=== PATIENT | male | born 1940 | race Caucasian/White ===

== ENCOUNTER 2022-09-09 13:51 | Inpatient (IN) | payer OTHER, MEDICAID ==
[~2022-09-09] VITALS: Ht 180.3 cm; Wt 127.5 kg
[2022-09-09 14:00] VITALS: BP_SYST 125
[2022-09-09] MEDS ORDERED: MORPHINE 4 MG INJ. 4 MG/ML VIAL IVP ONE (15:30)
[2022-09-09 15:48] LABS: BASOPHILS # (AUTO) 0.1 K/uL (0.0-0.2); BASOPHILS % (AUTO) 0.7 % (0.0-2.0); EOSINOPHILS # (AUTO) 0.1 K/uL (0.0-0.4); HEMATOCRIT 37.7 % (36-54); HEMOGLOBIN 12.3 g/dL (14.0-18.0); LYMPHOCYTES # (AUTO) 1.3 K/uL (1.0-5.5); LYMPHOCYTES % (AUTO) 14.9 % (20.5-51.5); MEAN CORPUSCULAR HEMOGLOBIN 29 pg (27-31); MEAN CORPUSCULAR HGB CONC 33 % (32-36); MEAN CORPUSCULAR VOLUME 90 fL (79.0-98.0); MONOCYTES # (AUTO) 0.9 K/uL (0.0-1.0); MONOCYTES % (AUTO) 10.4 % (1.7-9.3); NEUTROPHILS # (AUTO) 6.5 K/uL (1.8-7.7); PLATELET COUNT (AUTO) 197 K/uL (130-430); RED CELL DISTRIBUTION WIDTH 15.3 % (9.0-15.0); WHITE BLOOD COUNT (AUTO) 8.9 K/uL (4.8-10.8)
[2022-09-09 16:13] LABS: ANION GAP 8 (5-15); CALCIUM 8.3 mg/dL (8.4-11.0); CHLORIDE 97 mmol/L (98-107); CREATININE 1.85 mg/dL (0.55-1.30); GLUCOSE 307 mg/dL (70-99); UREA NITROGEN, BLOOD 20 mg/dL (8-21)
[2022-09-09 16:17] LABS: ALANINE AMINOTRANSFERASE 13 U/L (12-78); ALBUMIN 2.5 g/dL (3.4-4.8); ASPARTATE AMINOTRANSFERASE 16 U/L (10-37); TOTAL BILIRUBIN 0.6 mg/dL (0.0-1.0)
[2022-09-09 16:21] LABS: INR 1.1 (0.80-1.20); PROTHROMBIN TIME 11.3 SECS (9.5-12.5)
[2022-09-09] MEDS ORDERED: APIX2.5T PO (17:03)
[2022-09-09] MEDS ORDERED: ALBU2.5V7 INH (17:03)
[2022-09-09] MEDS ORDERED: INSU100V11 SQ (17:03)
[2022-09-09] MEDS ORDERED: ASCO500T19 PO (17:03)
[2022-09-09] MEDS ORDERED: AMLO5TAB4 PO (17:03)
[2022-09-09] MEDS ORDERED: INSU100V46 SQ (17:03)
[2022-09-09] MEDS ORDERED: FAMO20TA8 PO (17:03)
[2022-09-09] MEDS ORDERED: DOCU-144 PO (17:03)
[2022-09-09] MEDS ORDERED: VITA250012 PO (17:03)
[2022-09-09] MEDS ORDERED: LIP80 PO (17:03)
[2022-09-09] MEDS ORDERED: AMIN30LI2 PO (17:03)
[2022-09-09] MEDS ORDERED: POTA-197 PO (17:03)
[2022-09-09] MEDS ORDERED: FURO-149 PO (17:03)
[2022-09-10] MEDS ORDERED: HALOPERIDOL LACTATE 5 MG/ML VIAL IVP ONE (02:15)
[2022-09-10] MEDS: MORPHINE 2 MG/ML INJ. SYRINGE IVP PRN ×2 (03:03→22:36)
[2022-09-10 06:54] LABS: BASOPHILS # (AUTO) 0.1 K/uL (0.0-0.2); BASOPHILS % (AUTO) 0.6 % (0.0-2.0); EOSINOPHILS # (AUTO) 0.1 K/uL (0.0-0.4); EOSINOPHILS % (AUTO) 1.4 % (0.0-4.0); HEMATOCRIT 35.5 % (36-54); HEMOGLOBIN 11.9 g/dL (14.0-18.0); LYMPHOCYTES # (AUTO) 1.5 K/uL (1.0-5.5); LYMPHOCYTES % (AUTO) 17.4 % (20.5-51.5); MEAN CORPUSCULAR HEMOGLOBIN 30 pg (27-31); MEAN CORPUSCULAR HGB CONC 34 % (32-36); MEAN CORPUSCULAR VOLUME 89 fL (79.0-98.0); MONOCYTES # (AUTO) 0.9 K/uL (0.0-1.0); MONOCYTES % (AUTO) 10.6 % (1.7-9.3); PLATELET COUNT (AUTO) 177 K/uL (130-430); RED BLOOD CELL COUNT(AUTO) 3.99 MIL/uL (4.2-6.2); RED CELL DISTRIBUTION WIDTH 15.1 % (9.0-15.0); WHITE BLOOD COUNT (AUTO) 8.6 K/uL (4.8-10.8)
[2022-09-10 07:11] LABS: ALANINE AMINOTRANSFERASE 12 U/L (12-78); ALBUMIN 2.5 g/dL (3.4-4.8); ANION GAP 5 (5-15); ASPARTATE AMINOTRANSFERASE 12 U/L (10-37); CALCIUM 8.6 mg/dL (8.4-11.0); CHLORIDE 97 mmol/L (98-107); CREATININE 1.68 mg/dL (0.55-1.30); GLUCOSE 265 mg/dL (70-99); TOTAL BILIRUBIN 0.9 mg/dL (0.0-1.0); UREA NITROGEN, BLOOD 21 mg/dL (8-21)
[2022-09-10] MEDS ORDERED: INSULIN REGULAR, HUMAN 100 UNITS/ML, 3 ML VIAL (humuLIN R) SUBCUT PRN (15:15)
[2022-09-10] MEDS ORDERED: ALBUTEROL SULFATE 0.083% 2.5 MG/3 ML VIAL.NEB INH PRN (16:30)
[2022-09-10] MEDS ORDERED: INSU100V46 (16:31)
[2022-09-10 16:35] VITALS: BP_SYST 131
[2022-09-10] MEDS: INSULIN LISPRO SLIDING SCALE 100 UNITS/ML, 3 ML VIAL (humaLOG) SUBCUT PRN (16:43)
[2022-09-10 17:45] VITALS: BP_SYST 152
[2022-09-10 18:54] VITALS: BP_SYST 132
[2022-09-10 20:00] VITALS: BP_SYST 138
[2022-09-10] MEDS: ATORVASTATIN 20 MG TABLET PO SCH (20:05)
[2022-09-10] MEDS: DOCUSATE SODIUM 100 MG CAPSULE PO SCH (20:06)
[2022-09-10] MEDS: APIXABAN 2.5 MG TABLET PO SCH (20:07)
[2022-09-10] MEDS: FUROSEMIDE 40 MG TABLET PO SCH (20:07)
[2022-09-10] MEDS: INSULIN GLARGINE 100 UNITS/ML, 10 ML VIAL SQ SCH (20:10)
[2022-09-11 04:00] VITALS: BP_SYST 134
[2022-09-11] MEDS: MORPHINE 2 MG/ML INJ. SYRINGE IVP PRN ×2 (04:09→20:24)
[2022-09-11 08:00] VITALS: BP_SYST 146
[2022-09-11] MEDS: FAMOTIDINE 20 MG TABLET PO SCH (09:44)
[2022-09-11] MEDS: APIXABAN 2.5 MG TABLET PO SCH ×2 (09:44→20:09)
[2022-09-11] MEDS: FUROSEMIDE 40 MG TABLET PO SCH ×2 (09:45→20:07)
[2022-09-11] MEDS: POTASSIUM CHLORIDE 20 MEQ TAB.PRT.SR PO SCH (09:46)
[2022-09-11] MEDS: amLODIPine BESYLATE 5 MG TABLET PO SCH (09:47)
[2022-09-11] MEDS: DOCUSATE SODIUM 100 MG CAPSULE PO SCH ×2 (09:50→20:06)
[2022-09-11] MEDS: INSULIN LISPRO SLIDING SCALE 100 UNITS/ML, 3 ML VIAL (humaLOG) SUBCUT PRN ×3 (11:23→20:40)
[2022-09-11 12:30] VITALS: BP_SYST 121
[2022-09-11 17:00] VITALS: BP_SYST 126
[2022-09-11 20:00] VITALS: BP_SYST 132
[2022-09-11] MEDS: ATORVASTATIN 20 MG TABLET PO SCH (20:08)
[2022-09-11] MEDS: INSULIN GLARGINE 100 UNITS/ML, 10 ML VIAL SQ SCH (20:36)
[2022-09-12 00:47] VITALS: BP_SYST 123
[2022-09-12 06:41] LABS: ANION GAP 3 (5-15); CALCIUM 8.7 mg/dL (8.4-11.0); CHLORIDE 97 mmol/L (98-107); CREATININE 1.57 mg/dL (0.55-1.30); GLUCOSE 230 mg/dL (70-99); UREA NITROGEN, BLOOD 26 mg/dL (8-21)
[2022-09-12 07:47] LABS: BASOPHILS # (AUTO) 0.1 K/uL (0.0-0.2); BASOPHILS % (AUTO) 0.8 % (0.0-2.0); EOSINOPHILS # (AUTO) 0.3 K/uL (0.0-0.4); EOSINOPHILS % (AUTO) 3.1 % (0.0-4.0); HEMATOCRIT 33.7 % (36-54); HEMOGLOBIN 11.3 g/dL (14.0-18.0); LYMPHOCYTES # (AUTO) 1.9 K/uL (1.0-5.5); LYMPHOCYTES % (AUTO) 21.6 % (20.5-51.5); MEAN CORPUSCULAR HEMOGLOBIN 30 pg (27-31); MEAN CORPUSCULAR HGB CONC 34 % (32-36); MEAN CORPUSCULAR VOLUME 89 fL (79.0-98.0); MONOCYTES # (AUTO) 1.1 K/uL (0.0-1.0); MONOCYTES % (AUTO) 12.2 % (1.7-9.3); NEUTROPHILS # (AUTO) 5.4 K/uL (1.8-7.7); NEUTROPHILS % (AUTO) 62.3 % (40.0-70.0); PLATELET COUNT (AUTO) 174 K/uL (130-430); RED BLOOD CELL COUNT(AUTO) 3.79 MIL/uL (4.2-6.2); RED CELL DISTRIBUTION WIDTH 15.1 % (9.0-15.0); WHITE BLOOD COUNT (AUTO) 8.7 K/uL (4.8-10.8)
[2022-09-12] MEDS: DOCUSATE SODIUM 100 MG CAPSULE PO SCH ×2 (08:36→21:27)
[2022-09-12] MEDS: FAMOTIDINE 20 MG TABLET PO SCH (08:36)
[2022-09-12] MEDS: amLODIPine BESYLATE 5 MG TABLET PO SCH (08:40)
[2022-09-12] MEDS: POTASSIUM CHLORIDE 20 MEQ TAB.PRT.SR PO SCH (08:40)
[2022-09-12] MEDS: APIXABAN 2.5 MG TABLET PO SCH ×2 (08:41→21:26)
[2022-09-12] MEDS: FUROSEMIDE 40 MG TABLET PO SCH ×2 (08:45→21:28)
[2022-09-12] MEDS: MUPIROCIN 2% TOPICAL OINTMENT 22 GM TP SCH ×2 (11:13→21:28)
[2022-09-12] MEDS: INSULIN LISPRO SLIDING SCALE 100 UNITS/ML, 3 ML VIAL (humaLOG) SUBCUT PRN ×3 (11:20→21:25)
[2022-09-12 11:31] VITALS: BP_SYST 127
[2022-09-12 16:38] VITALS: BP_SYST 140
[2022-09-12] MEDS ORDERED: VITD2000 PO (17:35)
[2022-09-12] MEDS ORDERED: ACET325C5 PO (17:43)
[2022-09-12] MEDS: INSULIN GLARGINE 100 UNITS/ML, 10 ML VIAL SQ SCH (21:02)
[2022-09-12] MEDS: ATORVASTATIN 20 MG TABLET PO SCH (21:28)
[2022-09-13] VITALS: BP_SYST 132
[2022-09-13 02:08] VITALS: BP_SYST 151
[2022-09-13 04:45] VITALS: BP_SYST 138
[2022-09-13] MEDS: INSULIN LISPRO SLIDING SCALE 100 UNITS/ML, 3 ML VIAL (humaLOG) SUBCUT PRN ×4 (06:21→22:33)
[2022-09-13] MEDS: FAMOTIDINE 20 MG TABLET PO SCH (09:26)
[2022-09-13] MEDS: DOCUSATE SODIUM 100 MG CAPSULE PO SCH ×2 (09:26→22:22)
[2022-09-13] MEDS: APIXABAN 2.5 MG TABLET PO SCH ×2 (09:27→22:23)
[2022-09-13] MEDS: FUROSEMIDE 40 MG TABLET PO SCH ×2 (09:28→22:24)
[2022-09-13] MEDS: POTASSIUM CHLORIDE 20 MEQ TAB.PRT.SR PO SCH (09:29)
[2022-09-13] MEDS: amLODIPine BESYLATE 5 MG TABLET PO SCH (09:29)
[2022-09-13] MEDS: MUPIROCIN 2% TOPICAL OINTMENT 22 GM TP SCH ×2 (09:29→22:25)
[2022-09-13 13:36] VITALS: BP_SYST 110
[2022-09-13 15:40] VITALS: BP_SYST 115
[2022-09-13 20:00] VITALS: BP_SYST 100
[2022-09-13] MEDS: ATORVASTATIN 20 MG TABLET PO SCH (22:24)
[2022-09-13] MEDS: INSULIN GLARGINE 100 UNITS/ML, 10 ML VIAL SQ SCH (22:35)
[2022-09-14 00:23] VITALS: BP_SYST 124
[2022-09-14] MEDS: INSULIN LISPRO SLIDING SCALE 100 UNITS/ML, 3 ML VIAL (humaLOG) SUBCUT PRN ×2 (06:26→12:22)
[2022-09-14 07:33] LABS: BASOPHILS # (AUTO) 0.1 K/uL (0.0-0.2); BASOPHILS % (AUTO) 0.6 % (0.0-2.0); EOSINOPHILS # (AUTO) 0.1 K/uL (0.0-0.4); EOSINOPHILS % (AUTO) 1.3 % (0.0-4.0); HEMATOCRIT 34.8 % (36-54); HEMOGLOBIN 11.4 g/dL (14.0-18.0); LYMPHOCYTES # (AUTO) 1.5 K/uL (1.0-5.5); LYMPHOCYTES % (AUTO) 14.5 % (20.5-51.5); MEAN CORPUSCULAR HEMOGLOBIN 29 pg (27-31); MEAN CORPUSCULAR HGB CONC 33 % (32-36); MEAN CORPUSCULAR VOLUME 89 fL (79.0-98.0); MONOCYTES # (AUTO) 1.4 K/uL (0.0-1.0); MONOCYTES % (AUTO) 13.4 % (1.7-9.3); NEUTROPHILS # (AUTO) 7.3 K/uL (1.8-7.7); NEUTROPHILS % (AUTO) 70.2 % (40.0-70.0); PLATELET COUNT (AUTO) 196 K/uL (130-430); WHITE BLOOD COUNT (AUTO) 10.4 K/uL (4.8-10.8)
[2022-09-14 07:47] LABS: ALANINE AMINOTRANSFERASE 13 U/L (12-78); ALBUMIN 2.2 g/dL (3.4-4.8); ANION GAP 5 (5-15); ASPARTATE AMINOTRANSFERASE 17 U/L (10-37); CALCIUM 8.8 mg/dL (8.4-11.0); CHLORIDE 97 mmol/L (98-107); CREATININE 1.57 mg/dL (0.55-1.30); GLUCOSE 216 mg/dL (70-99); TOTAL BILIRUBIN 0.9 mg/dL (0.0-1.0); UREA NITROGEN, BLOOD 29 mg/dL (8-21)
[2022-09-14 07:57] VITALS: BP_SYST 114
[2022-09-14] MEDS: POTASSIUM CHLORIDE 20 MEQ TAB.PRT.SR PO SCH (09:47)
[2022-09-14] MEDS: FUROSEMIDE 40 MG TABLET PO SCH (09:47)
[2022-09-14] MEDS: DOCUSATE SODIUM 100 MG CAPSULE PO SCH (09:47)
[2022-09-14] MEDS: FAMOTIDINE 20 MG TABLET PO SCH (09:48)
[2022-09-14] MEDS: amLODIPine BESYLATE 5 MG TABLET PO SCH (09:49)
[2022-09-14] MEDS: MUPIROCIN 2% TOPICAL OINTMENT 22 GM TP SCH (09:49)
[2022-09-14] MEDS: APIXABAN 2.5 MG TABLET PO SCH (09:56)
[2022-09-14 12:00] VITALS: BP_SYST 118; BP_SYST 121
[2022-09-14] MEDS ORDERED: traMADol HCL HCL 50 MG TABLET (ULTRAM) PO SCH (12:00)
[2022-09-14 14:16] VITALS: BP_SYST 116
[2022-09-14 16:00] VITALS: BP_SYST 123
== END 2022-09-14 16:35 | DRG 562 ==
LOC: SED 13:51 → SMU 16:37
PROVIDERS: ADMIT Internal Medicine; ATTEND Internal Medicine
PROC: 0QSGXZZ Reposition Right Tibia, External Approach (ICD-10-PCS; principal; 2022-09-12)
PROC: 0QSJXZZ Reposition Right Fibula, External Approach (ICD-10-PCS; 2022-09-12)
DX: S82.201A Unspecified fracture of shaft of right tibia, initial encounter for closed fracture (principal); E43 Unspecified severe protein-calorie malnutrition; I48.20 Chronic atrial fibrillation, unspecified; I69.351 Hemiplegia and hemiparesis following cerebral infarction affecting right dominant side; I13.0 Hypertensive heart and chronic kidney disease with heart failure and stage 1 through stage 4 chronic kidney disease, or unspecified chronic kidney disease; I50.42 Chronic combined systolic (congestive) and diastolic (congestive) heart failure; S82.401A Unspecified fracture of shaft of right fibula, initial encounter for closed fracture; E78.5 Hyperlipidemia, unspecified; W18.39XA Other fall on same level, initial encounter; E66.01 Morbid (severe) obesity due to excess calories; Z20.822 Contact with and (suspected) exposure to COVID-19; E11.22 Type 2 diabetes mellitus with diabetic chronic kidney disease; N18.30 Chronic kidney disease, stage 3 unspecified; J44.9 Chronic obstructive pulmonary disease, unspecified; Z79.4 Long term (current) use of insulin; Z79.899 Other long term (current) drug therapy; Z79.01 Long term (current) use of anticoagulants; Z74.01 Bed confinement status; Y93.89 Activity, other specified; Y92.89 Other specified places as the place of occurrence of the external cause; Y99.8 Other external cause status; Z86.718 Personal history of other venous thrombosis and embolism; Z87.891 Personal history of nicotine dependence; Z95.0 Presence of cardiac pacemaker; Z68.39 Body mass index [BMI] 39.0-39.9, adult
CPT/HCPCS: 36415; 71045; 73564; 73590-TC; 76376; 80048; 80053; 82962; 85025; 85610-TC; 85730-TC; 87081; 93005; 93306; 94760; 96372; 96374; 96375; 99285; J1630; J1815; J2270; J7030

== ENCOUNTER 2023-05-23 16:56 | Emergency (ER) | payer OTHER, MEDICAID ==
[~2023-05-23] VITALS: Ht 177.8 cm; Wt 113.4 kg
[~2023-05-23 16:56] MED LIST: ACET325C5 PO; ALBU2.5V7 INH; AMIN30LI2 PO; AMLO5TAB4 PO; APIX2.5T PO; ASCO500T19 PO; DOCU-144 PO; FAMO20TA8 PO; FURO-149 PO; INSU100V11 SQ; INSU100V46; LIP80 PO; POTA-197 PO; VITD2000 PO
[2023-05-23 17:04] VITALS: BP_SYST 129; PULSE 72; RESP 18; TEMP 98; O2SAT 97
[2023-05-23 18:37] LABS: BASOPHILS # (AUTO) 0.1 K/uL (0.0-0.2); BASOPHILS % (AUTO) 0.8 % (0.0-2.0); EOSINOPHILS # (AUTO) 0.3 K/uL (0.0-0.4); HEMATOCRIT 40.1 % (36-54); HEMOGLOBIN 12.5 g/dL (14.0-18.0); LYMPHOCYTES # (AUTO) 1.6 K/uL (1.0-5.5); LYMPHOCYTES % (AUTO) 17.6 % (20.5-51.5); MEAN CORPUSCULAR HEMOGLOBIN 27 pg (27-31); MEAN CORPUSCULAR HGB CONC 31 % (32-36); MEAN CORPUSCULAR VOLUME 86 fL (79.0-98.0); MONOCYTES # (AUTO) 1.1 K/uL (0.0-1.0); MONOCYTES % (AUTO) 11.6 % (1.7-9.3); NEUTROPHILS # (AUTO) 6.1 K/uL (1.8-7.7); PLATELET COUNT (AUTO) 221 K/uL (130-430); RED BLOOD CELL COUNT(AUTO) 4.65 MIL/uL (4.2-6.2); RED CELL DISTRIBUTION WIDTH 16.2 % (9.0-15.0); WHITE BLOOD COUNT (AUTO) 9.2 K/uL (4.8-10.8)
[2023-05-23 18:51] LABS: ANION GAP 3 (5-15); CALCIUM 9.2 mg/dL (8.4-11.0); CARBON DIOXIDE 37 mmol/L (23-29); CHLORIDE 97 mmol/L (98-107); GLUCOSE 239 mg/dL (74-106); POTASSIUM 4.2 mmol/L (3.5-5.1); SODIUM SERUM 137 mmol/L (136-145); UREA NITROGEN, BLOOD 24 mg/dL (8-21)
[2023-05-23 18:52] LABS: INR 1.1 (0.80-1.20); PROTHROMBIN TIME 11.3 SECS (9.5-12.5)
[2023-05-23 18:55] LABS: ALBUMIN 2.7 g/dL (3.4-4.8); ASPARTATE AMINOTRANSFERASE 11 U/L (10-37); TOTAL BILIRUBIN 0.5 mg/dL (0.0-1.0); TOTAL PROTEIN, SERUM 6.5 g/dL (6.4-8.3)
[2023-05-23 19:30] LABS: ALANINE AMINOTRANSFERASE 5 U/L (12-78)
[2023-05-23 23:02] VITALS: BP_SYST 121; PULSE 50; RESP 18; TEMP 97.1; O2SAT 96
== END 2023-05-23 20:15 | disposition home or self-care (01) ==
LOC: SED 16:56
DX: L97.519 Non-pressure chronic ulcer of other part of right foot with unspecified severity (principal); M79.661 Pain in right lower leg; J44.9 Chronic obstructive pulmonary disease, unspecified; I11.0 Hypertensive heart disease with heart failure; I50.9 Heart failure, unspecified; I12.9 Hypertensive chronic kidney disease with stage 1 through stage 4 chronic kidney disease, or unspecified chronic kidney disease; E11.22 Type 2 diabetes mellitus with diabetic chronic kidney disease; N18.9 Chronic kidney disease, unspecified; Z79.899 Other long term (current) drug therapy
CPT/HCPCS: 36415; 80053; 85025; 85610-TC; 93005; 93922; 93971; 99285